=== PATIENT | male | born 1945 | race Caucasian/White ===

== ENCOUNTER 2020-02-14 11:05 | Emergency (ER) | payer MEDICARE ==
[~2020-02-14] VITALS: Ht 177.8 cm; Wt 90.0 kg
[2020-02-14 11:18] VITALS: BP_DIAS 87
[2020-02-14] MEDS ORDERED: NORMAL SALINE IV SCH (11:45)
[2020-02-14 11:52] LABS: BASO # 0.1 x10^3/uL (0.0-0.2); BASO % 1 % (0-3); EOS % 1 % (0-3); HEMATOCRIT 46.9 % (39.0-53.0); LYMPH # 1.1 x10^3/uL (1.0-4.8); LYMPH % 13 % (24-48); MEAN CORPUSCULAR HEMOGLOBIN 29 pg (25-35); MEAN CORPUSCULAR HGB CONC 32 g/dL (31-37); MEAN CORPUSCULAR VOLUME 91 fL (79-100); MONO # 0.9 x10^3/uL (0.0-1.1); MONO % 11 % (0-9); NEUT # 6.6 x10^3uL (1.8-7.7); NEUT % 75 % (31-73); PLATELET COUNT 249 x10^3/uL (140-400); RED BLOOD COUNT 5.15 x10^6/uL (4.30-5.70); RED CELL DISTRIBUTION WIDTH 15.9 % (11.5-14.5); WHITE BLOOD COUNT 8.8 x10^3/uL (4.0-11.0)
--- NOTE | 2020-02-14 11:53 | PHYS DOC ---
Past History Past Medical History: CHF, COPD, Diabetes, High Cholesterol, Hypertension Past Surgical History: No Surgical History Alcohol Use: None General Adult EDM: Chief Complaint: ALTERED MENTAL STATUS HPI: HPI: 74-year-old male presents via EMS for concern of altered mental status. The patient was at a local gas station getting gas with no pants on. The police were called and they called EMS. When asked the patient about this, the patient tells me that his pants were in the laundry and he needed to go to the store so he went without pants. He does not have any medical complaints. He has a basel ine cough due to his COPD. He states it is not worse. He has not had a fever chills. Home health comes to his house 3 days a week to wrap his lower extremities and take care of his medications. He does not know why. Review of Systems: Review of Systems: Constitutional: Denies fever or chills Eyes: Denies change in visual acuity HENT: Denies nasal congestion or sore throat Respiratory: Denies cough or shortness of breath Cardiovascular: Denies chest pain or edema GI: Denies abdominal pain, nausea, vomiting, bloody stools or diarrhea : Denies dysuria Musculoskeletal: Denies back pain or joint pain Integument: Denies rash Neurologic: Denies headache, focal weakness or sensory changes Endocrine: Denies polyuria or polydipsia Lymphatic: Denies swollen glands Psychiatric: Denies depression or anxiety Heart Score: Risk Factors: Risk Factors: DM, Current or recent (<one month) smoker, HTN, HLP, family history of CAD, obesity. Risk Scores: Score 0 - 3: 2.5% MACE over next 6 weeks - Discharge Home Score 4 - 6: 20.3% MACE over next 6 weeks - Admit for Clinical Observation Score 7 - 10: 72.7% MACE over next 6 weeks - Early Invasive Strategies Allergies: Allergies: Allergies Uncoded Allergies Type Severity Reaction Last Updated Verified BETA BLOCKERS Allergy Unknown 04/25/15 PCN Allergy Unknown 04/25/15 Physical Exam: PE: Constitutional: Not wearing pants. Well developed, well nourished, no acute distress, non-toxic appearance. [] HENT: Normocephalic, atraumatic, bilateral external ears normal, oropharynx moist, no oral exudates, nose normal. [] Eyes: PERRLA, EOMI, conjunctiva normal, no discharge. [] Neck: Normal range of motion, no tenderness, supple, no stridor. [] Cardiovascular:Heart rate regular rhythm, no murmur [] Lungs & Thorax: Bilateral breath sounds diminished but clear to auscultation [] Abdomen: Bowel sounds normal, soft, no tenderness, no masses, no pulsatile masses. [] Skin: Warm, dry, no erythema, no rash. [] Back: No tenderness, no CVA tenderness. [] Extremities: No tenderness, no cyanosis, no clubbing, ROM intact, no edema. [] Neurologic: Alert and oriented X 3, normal motor function, normal sensory function, no focal deficits noted. [] Psychologic: Affect normal, judgement normal, mood normal. [] Current Patient Data: Vital Signs: Vital Signs Date Time Temp Pulse Resp B/P (MAP) Pulse Ox O2 Delivery O2 Flow Rate FiO2 02/14/20 11:18 98.7 104 18 207/87 (127) 98 Nasal Cannula 3.0 EKG: EKG: Sinus rhythm, rate 68, rightward axis, no ST elevation or depression. [] Radiology/Procedures: Radiology/Procedures: [] Impressions: EXAM: Chest, single view. HISTORY: Altered mental status. COMPARISON: None. FINDINGS: A frontal view of the chest is obtained. There is central predominant right lung and lower lobe predominant left lung atelectasis or interstitial infiltrate. No consolidation, pleural effusion or pneumothorax is seen. There is a prominent cardiac silhouette, a component of which is due to portable technique. IMPRESSION: Central predominant right lung and lower lobe predominant left lung atelectasis or interstitial infiltrate. Electronically signed by: Sumi Brandt MD (02/14/2020 11:51 AM) [facility] DICTATED AND SIGNED BY: SUMI BRANDT MD DATE: 02/14/20 1159 CC: IBAN LARSON DO; DAKOTAH PULIDO ~ Course & Med Decision Making: Course & Med Decision Making Pertinent Labs and Imaging studies reviewed. (See chart for details) The patient's chest x-ray is abnormal. See official read for more details. These are likely chronic findings as his presentation is not concerning for pneumonia. There are no previous x-rays for comparison. Patient's labs are unremarkable except for slightly elevated troponin of 0.06. I discussed this with the advanced practice provider at the [facility] office and she felt that this is likely a demand ischemia due to his blood pressure and underlying CHF. His proBNP is elevated, but this also is likely baseline. We both feel that the patient can be safely discharged home. He has no chest pain or shortness of breath. He was not here for this complaint at all. He is stable for discharge at this time. [] Dragon Disclaimer: Dragon Disclaimer: This electronic medical record was generated, in whole or in part, using a voice recognition dictation system. Departure Departure: Impression: Primary Impression: Elevated troponin I level Additional Impression: Elevated brain natriuretic peptide (BNP) level Disposition: 01 HOME, SELF-CARE Condition: STABLE Referrals: DAKOTAH PULIDO (PCP) IBAN LARSON DO Feb 14, 2020 11:52
[2020-02-14 12:01] LABS: CALCIUM 8.9 mg/dL (8.5-10.1); GFR 72.8; POTASSIUM 4.4 mmol/L (3.5-5.1)
[2020-02-14 12:08] LABS: ALBUMIN/GLOBULIN RATIO 0.7 (1.0-1.7); TOTAL BILIRUBIN 0.6 mg/dL (0.2-1.0); TOTAL PROTEIN 7.2 g/dL (6.4-8.2)
[2020-02-14 13:15] VITALS: BP_SYST 154
[2020-02-14 13:22] LABS: BILIRUBIN,URINE SMALL (NEG); CLARITY,URINE CLEAR; COLOR,URINE YELLOW; GLUCOSE,URINE NEG (NEG); NITRITE,URINE NEG (NEG)
--- NOTE | 2020-02-14 14:46 | EKG ---
[address] [address] Test Date: 2020-02-14 Test Time: 11:22:10 Pat Name: SHO IVERSON Department: Room: Gender: M [employer] Supervisor: : 1945 Requested By: IBAN LARSON Order Number: [id number] Reading MD: Nikolai Burns Measurements Intervals [place] Rate: 68 P: -42 CA: 210 QRS: 146 QRSD: 110 T: -35 QT: 410 QTc: 441 Interpretive Statements BASELINE ARTIFACT PROBABLE SINUS RHYTHM QRS(T) CONTOUR ABNORMALITY CONSIDER ANTEROLATERAL INFARCT ABNORMAL ECG Electronically Signed On 02-15-2020 8:03:51 CDT by Nikolai Burns
== END 2020-02-14 13:07 | disposition home or self-care (01) ==
LOC: ER 11:05
DX: R79.89 Other specified abnormal findings of blood chemistry (principal); I11.0 Hypertensive heart disease with heart failure; I50.9 Heart failure, unspecified; J44.9 Chronic obstructive pulmonary disease, unspecified; E11.9 Type 2 diabetes mellitus without complications; E78.00 Pure hypercholesterolemia, unspecified; Z88.0 Allergy status to penicillin; Z88.8 Allergy status to other drugs, medicaments and biological substances
CPT/HCPCS: 36415; 71045; 80053; 81003; 83880; 84484; 85025; 93005; 99285

== ENCOUNTER 2020-11-08 17:08 | Emergency (ER) | payer MEDICARE ==
[~2020-11-08] VITALS: Ht 177.8 cm; Wt 75.0 kg
--- NOTE | 2020-11-08 17:19 | PHYS DOC ---
Past History Past Medical History: CHF, COPD, Diabetes, High Cholesterol, Hypertension (DAKOTAH TAYLOR DO) Past Surgical History: No Surgical History (DAKOTAH TAYLOR DO) Alcohol Use: None (DAKOTAH TAYLOR DO) General Adult EDM: Chief Complaint: ALTERED MENTAL STATUS HPI: HPI: 74 yo M PMH CHF, COPD (on no home oxygen), DM, HTN and HLD, presents to the ED brought in by EMS with concerns for weakness and change in mental status. EMS found pt down, confused/not oriented, 65% on room air and was placed on nonrebreather. Son-on law called 911, last known well around 2pm yesterday. Patient usually ambulates with a walker but has been unable to stand up at home. Plastic is on floor at home for voiding (family appears to have been cleaning it up). Patient does report a fall. Pt slow to respond but states his name, month, year and recent holiday. Pt shakes his head no when asked if he's in any pain. History/ROS does seem limited due to pts' mental status. Medical papers w/pt reviewed. Not on any AC. H/o vascular dementia. (DAKOTAH TAYLOR DO) Review of Systems: Review of Systems: ROS: limited 2/2 dementia vs medical condition (DAKOTAH TAYLOR DO) Allergies: Allergies: Allergies Uncoded Allergies Type Severity Reaction Last Updated Verified BETA BLOCKERS Allergy Unknown 04/25/15 PCN Allergy Unknown 04/25/15 (DAKOTAH TAYLOR DO) Physical Exam: PE: Constitutional: Unkept, disheveled appearance, dried stool over lower extremity dressings and shoes HENT: Normocephalic, atraumatic, no nuchal rigidity or meningismus Eyes: EOMI, conjunctiva normal, no discharge. Neck: Normal range of motion, supple, dry mucous membranes Cardiovascular: S1/2 present, tachycardic on arrival Lungs & Thorax: Speaking in full sentences, bilateral equal chest rise, mild tachypnea but no retractions, 88-92% on NRB, audible crackles w/sputum production-lungs sound wet Abdomen: soft, no tenderness, large/obese w/fluid wave Skin: Warm, dry, no erythema, no rash. [] Extremities: No tenderness, no cyanosis, +2/4 bl edema Neurologic: Alert, moves both arms, not moving his legs Psychologic: Affect normal, judgement normal, mood normal. [] : scrotal edema bl with candidal infection in groin, stool caked in scotrum/perineal region w/scrotal induration/erythema, no fluctuance (DAKOTAH TAYLOR DO) PE: Constitutional: Pt is oriented to person, place, and time. Pt appears disheveled with poor hygiene and feces on various areas of his body HEENT: Head: Normocephalic and atraumatic. TMs clear, no hemotympanum Conjunctivae and EOM are normal. Pupils are equal, round, and reactive to light. Oropharynx is clear and dry, poor dentition No hematomas or lacerations or abrasions to face or scalp OP clear, no blood, no malocclusion, dentition intact Nares clear, no nasal septal hematoma Midface stable Neck: C-spine midline nontender, no step-offs Cardiovascular: Normal rate, regular rhythm and normal heart sounds. Pulmonary/Chest: Patient tachypneic with no obvious respiratory distress or accessory muscle use, diminished breath sounds bilaterally with rhonchi present most significant in both bilateral lower lobes Abdominal: Soft and protuberant. Bowel sounds are normal. Pt exhibits distension and positive fluid wave. There is no tenderness. Musculoskeletal: No bony tenderness to extremities Chest wall stable Pelvis stable and non-tender No vertebral TTP and spine without stepoffs Neurological: Pt is alert and oriented to person, place, and time. Moving all extremities willfully, able to wiggle all fingers and toes Alert and oriented x 3 Sensation grossly intact Skin: Skin is warm and dry. Patient has mild skin breakdown to posterior sacrum area without any obvious u lcers Patient has bilateral lower extremity Unna boots in place with feces present on bilateral wrappings Patient's bilateral lower extremity toes have cap refill less than 3 seconds with signs of onychomycosis No abrasions, no lacerations Psychiatric: Behavior is appropriate for situation (REBECCA SHELLEY DO) EKG: EKG: [] (DAKOTAH TAYLOR DO) EKG: EKG ordered and interpreted by myself at 1835 hrs. as sinus rhythm at a rate of 60 bpm, grossly prolonged MS interval without any other interval abnormalities, no axis deviation, T wave inversions noted in leads I, II, III, aVF, V5 and V6, these findings are concerning for inferior and lateral wall ischemia. Leads V1 and V2 are concerning for early elevation without any signs of STEMI per criteria Prior EKG obtained on 02/14/2020 compared to EKG today, findings noted above are all new (REBECCA SHELLEY ) Radiology/Procedures: Radiology/Procedures: [] (DAKOTAH TAYLOR DO) Radiology/Procedures: EXAM: Head CT without contrast; cervical spine CT without contrast. HISTORY: Altered mental status. TECHNIQUE: Computed tomographic images of the head and cervical spine were obt ained without contrast. *One or more of the following individualized dose reduction techniques were utilized for this examination: 1. Automated exposure control. 2. Adjustment of the mA and/or kV according to patient size. 3. Use of iterative reconstruction technique. COMPARISON: None. FINDINGS: Head: There is no hemorrhage. There is no mass effect or midline shift. There is no hydrocephalus. There are subtle areas of hypodensity within the cerebral white matter. This is most commonly due to chronic small vessel disease in patients of this age. There is cerebral volume loss. There is a suspected small chronic infarct within the right thalamus. The orbits, paranasal sinuses mastoid air cells are unremarkable. There is no suspicious calvarial lesion. Cervical spine: There is cervical kyphosis. There is mild anterolisthesis of C3 on C4. There is noninstrumented fusion with bony bridging at C4 through C7. There is degenerative endplate remodeling with disc space narrowing at C7-T1 and T1-T2. There is multilevel facet arthropathy. No displaced fracture is seen. There is calcified atherosclerotic plaque within the carotid bifurcations. The lung apices are unremarkable. The combination of degenerative changes results in mild left foraminal stenosis at C2-C3, mild right and moderate left foraminal stenosis at C3-C4, mild right foraminal stenosis at C4-5, mild left foraminal stenosis at C5-C6, mild bilateral foraminal stenosis at C6-C7, and moderate right foraminal stenosis at C7-T1. There is bone demineralization. IMPRESSION: 1. No acute intracranial finding or evidence of acute cervical spinal trauma. 2. Bilateral cerebral white matter changes, likely due to chronic small vessel disease. 3. Multilevel degenerative change throughout the cervical spine and upper thoracic spine, described above. 4. Noninstrumented fusion at C4-C7. Electronically signed by: Sumi Brandt MD (11/08/2020 7:17 PM) [facility] ====== EXAM: Abdomen and pelvis CT without intravenous contrast. HISTORY: Distention. TECHNIQUE: Computed tomographic images of the abdomen and pelvis were obtained without contrast. Multiplanar reformatting was performed. *One or more of the following individualized dose reduction techniques were utilized for this examination: 1. Automated exposure control. 2. Adjustment of the mA and/or kV according to patient size. 3. Use of iterative reconstruction technique. COMPARISON: None. FINDINGS: Evaluation of the lower thorax demonstrates trace bilateral pleural effusions. There is bilateral lower lobe and lingular interstitial infiltrate with partial consolidation. There is cardiomegaly. There is calcified atherosclerotic plaque involving the coronary arteries. There is calcification of the aortic valve and mitral valve annulus. No hepatic lesion is seen. There is periportal edema. No pancreatic lesion is seen. The spleen is normal in size. There is bilateral adrenal gland thickening without a discrete nodule. There is a loculated cyst with thin internal septation involving the left kidney, measuring 5.3 cm. There is no hydronephrosis. There is a tiny nonobstructing left renal stone or vascular calcification. There is colonic diverticulosis. There is no convincing diverticulitis. There is rectal wall thickening possibly due to relative underdistention or the sequela of prior inflammation. There is no convincing colitis or proctitis. There is bladder wall thickening and a focus of gas within the bladder lumen likely due to recent catheterization. There is calcified plaque involving the aorta and main aortic branch vessels. There are prominent retroperitoneal lymph nodes. For reference purposes, there is a left retroperitoneal lymph node inferior to the left renal vein measuring 1.5 cm in long axis. There is diffuse stranding throughout the mesentery. There is a small amount of free fluid within the pelvis. There are prominent bilateral inguinal lymph nodes. There are large bilateral hydroceles. There are degenerative changes throughout the spine. There is scoliosis and multilevel listhesis. There is bone demineralization. There is no acute or suspicious osseous finding. There are findings consistent with prior ventral abdominal wall surgery. IMPRESSION: 1. Bilateral mid and lower lung pneumonia. 2. Periportal edema. This can be due to rapid bolus patient hydration. Correlate with liver enzyme laboratory values to exclude hepatitis. 3. Diffuse mesenteric stranding and small amount of free fluid within the pelvis. Correlate for volume overload. 4. Colonic diverticulosis. 5. Loculated left renal cyst cyst with thin septation measuring 5.3 cm. Sonographic follow-up can be performed to confirm benignity. 6. Rectal wall thickening likely due to relative underdistention or prior inflammation. There is no convincing colitis/proctitis. 7. Prominent retroperitoneal lymph nodes. These may be reactive in etiology. 7. Large bilateral hydroceles. Electronically signed by: Sumi Brandt MD (11/08/2020 7:28 PM) [facility] EXAM: Chest, single view. HISTORY: Altered mental status. COMPARISON: 02/14/2020 FINDINGS: A frontal view of the chest is obtained. There is suspected chronic diffuse interstitial prominence with superimposed basilar atelectasis. There is a stable enlarged cardiac silhouette. No pleural effusion or pneumothorax is seen. IMPRESSION: Stable diffuse interstitial prominence with bilateral lower lobe atelectasis. Electronically signed by: Sumi Brandt MD (11/08/2020 7:33 PM) [facility] (REBECCA SHELLEY DO) Heart Score: Risk Factors: Risk Factors: DM, Current or recent (<one month) smoker, HTN, HLP, family history of CAD, obesity. Risk Scores: Score 0 - 3: 2.5% MACE over next 6 weeks - Discharge Home Score 4 - 6: 20.3% MACE over next 6 weeks - Admit for Clinical Observation Score 7 - 10: 72.7% MACE over next 6 weeks - Early Invasive Strategies (DAKOTAH TAYLOR DO) HEART Score for Chest Pain: HEART Score for Chest Pain Response (Comments) Value History Moderately Suspicious [address] Depression 2 Age > 65 2 Risk Factors >3 Risk Factors or Hx CAD 2 Troponin >3 x Normal Limit 2 Total 9 Course & Med Decision Making: Course & Med Decision Making Pertinent Labs and Imaging studies reviewed. (See chart for details) Pt seen by myself ined and workup started., Pt hypoxic/tachycardic with diffuse anasarca-suspect nstemi w/sepsis/pna/chf. Does have elevated troponin and whc 12. Blood has withmild hypoxia and hypercapnea. CXR, ekg, imaging to r/o trauma/infection and ams labs all still pending. I suspect patient will likely need transfer for critical care assessment and interventional cardiology consultation. RT to place pt on bipap to reduce preload/afterload and hopefully, prevent RSI. Due to shift change patient was signed out to Dr. Shelley who is aware of pts' critical nature. ([facility]) Course & Med Decision Making I assumed care of patient after comprehensive signout obtained from off going physician. I reviewed ER work-up thus far I evaluated patient repeating certain aspects of history and physical exam. I agree with findings above Patient who is weak without chest pain/chest pressure presenting grossly edematous with concerning EKG findings versus prior EKG and elevated troponin I called cardiology at [facility], case discussed in addition to EKGs. Decision was made to administer 324 mg aspirin, start heparin drip, and transport for ongoing cardiac observation with plans for cardiac catheterization In addition, he is grossly fluid overloaded likely from condition above versus other underlying comorbidities, 80 mg IV Lasix administered Patient does have pneumonia which is clinically consistent with physical exam findings, IV antibiotics started for CAP coverage I called Dr. Moreno, hospitalist at [facility] and case was discussed, he agreed to plan of care so far, for transfer and admission under his care. He was updated on proposed plan of care and my discussion with cardiology Patient was updated on proposed plan of care to transfer to [facility] for higher acuity of care that will likely include cardiac catheterization, he was amenable. All questions and concerns addressed prior to transport via EMS Critical Care Time This patient required critical care. Due to the fact that the patient required a significant amount of one on one physician - patient contact time, ordering and review of studies, arranging urgent treatment with development of a management plan, evaluation of patients response to treatment with frequent reassessments, and discussions with other providers this patient required critical care time in excess of 30 minutes. Critical care time was indicated due to the inherent instability and/or potential for instability in this patient. The critical care time that is allocated to this patient is above and beyond any time spent on any other billable procedures performed on this patient. (REBECCA SHELLEY DO) Dragon Disclaimer: Sanna Disclaimer: This electronic medical record was generated, in whole or in part, using a voice recognition dictation system. (DAKOTAH TAYLOR DO) Departure Departure: Impression: Primary Impression: NSTEMI (non-ST elevated myocardial infarction) Additional Impressions: Bilateral pneumonia Acute respiratory failure with hypoxia and hypercapnia UTI (urinary tract infection) Generalized edema due to fluid overload Renal cyst, left Disposition: 02 DC/TRF OTHER SHORT TERM HOS ([facility]) Admitting Physician: Byron Moreno (REBECCA SHELLEY DO) Referrals: KELLIE CASTLE MD (PCP) DAKOTAH TAYLOR DO Nov 08, 2020 17:19 REBECCA SHELLEY DO Nov 08, 2020 18:42
[2020-11-08 17:36] LABS: BASO # 0.1 x10^3/uL (0.0-0.2); BASO % 1 % (0-3); EOS % 0 % (0-3); HEMATOCRIT 52.1 % (39.0-53.0); HEMOGLOBIN 16.5 g/dL (13.0-17.5); LYMPH # 1.3 x10^3/uL (1.0-4.8); LYMPH % 11 % (24-48); MEAN CORPUSCULAR HEMOGLOBIN 30 pg (25-35); MEAN CORPUSCULAR HGB CONC 32 g/dL (31-37); MEAN CORPUSCULAR VOLUME 94 fL (79-100); MONO # 1.6 x10^3/uL (0.0-1.1); MONO % 13 % (0-9); NEUT # 9.1 x10^3uL (1.8-7.7); NEUT % 76 % (31-73); PLATELET COUNT 170 x10^3/uL (140-400); RED BLOOD COUNT 5.56 x10^6/uL (4.30-5.70); RED CELL DISTRIBUTION WIDTH 15.4 % (11.5-14.5)
[2020-11-08 17:55] LABS: BGAS PH 7.38 (7.35-7.46)
[2020-11-08 17:56] LABS: ACETAMIN < 2.0 mcg/mL (10-30)
[2020-11-08 17:57] LABS: MAGNESIUM 2.4 mg/dL (1.8-2.4); SALIC < 2.8 mg/dL (2.8-20.0)
[2020-11-08] MEDS ORDERED: AZITHROMYCIN 500 MG in IV NORMAL SALINE 250ML 250 ML IV ONE (18:00)
[2020-11-08] MEDS ORDERED: VANCOMYCIN PER PHARMACY MC PRN (18:00)
[2020-11-08] MEDS ORDERED: VANCOMYCIN 2 GM in IV NORMAL SALINE 500ML 500 ML IV ONE (18:30)
[2020-11-08] MEDS ORDERED: CEFEPIME HCL 2 GM in IV NORMAL SALINE 100ML 100 ML IV ONE (18:30)
[2020-11-08 18:50] LABS: CREATININE 2.2 mg/dL (0.7-1.3); GFR 29.3
[2020-11-08 18:54] LABS: BARBITURATES NEG (NEG); BENZODIAZEPINES NEG (NEG); CANNABINOIDS NEG (NEG); COCAINE NEG (NEG); METHADONE NEG (NEG); OPIATES NEG (NEG); PHENCYCLIDINE NEG (NEG)
[2020-11-08] MEDS ORDERED: ASPIRIN CHEWABLE 81 MG TABLET. PO ONE (19:00)
[2020-11-08 19:01] LABS: AMPHETAMINE/METHAMPHETAMINE NEG (NEG)
[2020-11-08] MEDS ORDERED: HEPARIN 25,000UTS/250ML PREMIX 250 ML IV PRN (19:15)
[2020-11-08] MEDS ORDERED: HEPARIN for IV BOLUS 10,000 UNIT/10 ML VIAL. IV PRN (19:15)
[2020-11-08] MEDS ORDERED: HEPARIN for IV BOLUS 10,000 UNIT/10 ML VIAL. IV ONE (19:15)
--- NOTE | 2020-11-08 19:20 | RAD ---
EXAM: Head CT without contrast; cervical spine CT without contrast. HISTORY: Altered mental status. TECHNIQUE: Computed tomographic images of the head and cervical spine were obtained without contrast. *One or more of the following individualized dose reduction techniques were utilized for this examina tion: 1. Automated exposure control. 2. Adjustment of the mA and/or kV according to patient size. 3. Use of iterative reconstruction technique. COMPARISON: None. FINDINGS: Head: There is no hemorrhage. There is no mass effect or midline shift. There is no hydrocephalus. Th ere are subtle areas of hypodensity within the cerebral white matter. This is most commonly due to ch ronic small vessel disease in patients of this age. There is cerebral volume loss. There is a suspect ed small chronic infarct within the right thalamus. The orbits, paranasal sinuses mastoid air cells a re unremarkable. There is no suspicious calvarial lesion. Cervical spine: There is cervical kyphosis. There is mild anterolisthesis of C3 on C4. There is nonin strumented fusion with bony bridging at C4 through C7. There is degenerative endplate remodeling with disc space narrowing at C7-T1 and T1-T2. There is multilevel facet arthropathy. No displaced fractur e is seen. There is calcified atherosclerotic plaque within the carotid bifurcations. The lung apices are unremarkable. The combination of degenerative changes results in mild left foraminal stenosis at C2-C3, mild right and moderate left foraminal stenosis at C3-C4, mild right foraminal stenosis at C4-5, mild left rick inal stenosis at C5-C6, mild bilateral foraminal stenosis at C6-C7, and moderate right foraminal sten osis at C7-T1. There is bone demineralization. IMPRESSION: 1. No acute intracranial finding or evidence of acute cervical spinal trauma. 2. Bilateral cerebral white matter changes, likely due to chronic small vessel disease. 3. Multilevel degenerative change throughout the cervical spine and upper thoracic spine, described a maximilian. 4. Noninstrumented fusion at C4-C7. Electronically signed by: Sumi Brandt MD (11/08/2020 7:17 PM) [facility]
--- NOTE | 2020-11-08 19:30 | RAD ---
EXAM: Abdomen and pelvis CT without intravenous contrast. HISTORY: Distention. TECHNIQUE: Computed tomographic images of the abdomen and pelvis were obtained without contrast. Mult iplanar reformatting was performed. *One or more of the following individualized dose reduction techniques were utilized for this examina tion: 1. Automated exposure control. 2. Adjustment of the mA and/or kV according to patient size. 3. Use of iterative reconstruction technique. COMPARISON: None. FINDINGS: Evaluation of the lower thorax demonstrates trace bilateral pleural effusions. There is nilesh ateral lower lobe and lingular interstitial infiltrate with partial consolidation. There is cardiomeg akhil. There is calcified atherosclerotic plaque involving the coronary arteries. There is calcificatio n of the aortic valve and mitral valve annulus. No hepatic lesion is seen. There is periportal edema. No pancreatic lesion is seen. The spleen is nor mal in size. There is bilateral adrenal gland thickening without a discrete nodule. There is a locula jose cyst with thin internal septation involving the left kidney, measuring 5.3 cm. There is no hydron ephrosis. There is a tiny nonobstructing left renal stone or vascular calcification. There is colonic diverticulosis. There is no convincing diverticulitis. There is rectal wall thickeni ng possibly due to relative underdistention or the sequela of prior inflammation. There is no convinc ing colitis or proctitis. There is bladder wall thickening and a focus of gas within the bladder lume n likely due to recent catheterization. There is calcified plaque involving the aorta and main aortic branch vessels. There are prominent ret roperitoneal lymph nodes. For reference purposes, there is a left retroperitoneal lymph node inferior to the left renal vein measuring 1.5 cm in long axis. There is diffuse stranding throughout the mese ntery. There is a small amount of free fluid within the pelvis. There are prominent bilateral inguina l lymph nodes. There are large bilateral hydroceles. There are degenerative changes throughout the spine. There is scoliosis and multilevel listhesis. The re is bone demineralization. There is no acute or suspicious osseous finding. There are findings cons istent with prior ventral abdominal wall surgery. IMPRESSION: 1. Bilateral mid and lower lung pneumonia. 2. Periportal edema. This can be due to rapid bolus patient hydration. Correlate with liver enzyme la boratory values to exclude hepatitis. 3. Diffuse mesenteric stranding and small amount of free fluid within the pelvis. Correlate for volum e overload. 4. Colonic diverticulosis. 5. Loculated left renal cyst cyst with thin septation measuring 5.3 cm. Sonographic follow-up can be performed to confirm benignity. 6. Rectal wall thickening likely due to relative underdistention or prior inflammation. There is no c onvincing colitis/proctitis. 7. Prominent retroperitoneal lymph nodes. These may be reactive in etiology. 7. Large bilateral hydroceles. Electronically signed by: Sumi Brandt MD (11/08/2020 7:28 PM) [facility]
--- NOTE | 2020-11-08 19:35 | RAD ---
EXAM: Chest, single view. HISTORY: Altered mental status. COMPARISON: 02/14/2020 FINDINGS: A frontal view of the chest is obtained. There is suspected chronic diffuse interstitial pr ominence with superimposed basilar atelectasis. There is a stable enlarged cardiac silhouette. No ple ural effusion or pneumothorax is seen. IMPRESSION: Stable diffuse interstitial prominence with bilateral lower lobe atelectasis. Electronically signed by: Sumi Brandt MD (11/08/2020 7:33 PM) [facility]
[2020-11-08 19:37] LABS: ALBUMIN/GLOBULIN RATIO 1.1 (1.0-1.7); GFR 29.3; TOTAL BILIRUBIN 1.5 mg/dL (0.2-1.0)
[2020-11-08 19:38] LABS: CLARITY,URINE CLOUDY; COLOR,URINE AMBER
[2020-11-08 19:39] LABS: GLUCOSE,URINE NEG (NEG)
[2020-11-08 19:40] LABS: BACTERIA,URINE MANY /HPF (0-FEW); NITRITE,URINE POS (NEG); SQUAMOUS EPITHELIAL CELL,UR MANY /LPF
[2020-11-08 19:41] LABS: GRANULAR CASTS,URINE FEW /HPF; HYALINE CASTS, URINE FEW /HPF
[2020-11-08] MEDS ORDERED: FUROSEMIDE 40 MG/4 ML VIAL IVP ONE (19:45)
[2020-11-08 19:51] LABS: INFLUENZA A PATIENT NEGATIVE (NEGATIVE); INFLUENZA B PATIENT NEGATIVE (NEGATIVE)
--- NOTE | 2020-11-08 20:09 | EKG ---
[address] [address] Test Date: 2020-11-08 Test Time: 18:33:05 Pat Name: SHO IVERSON Department: Room: Gender: M Sales Marketing Director: : 1945 Requested By: DAKOTAH TAYLOR Order Number: [id number] Reading MD: Measurements Intervals [place] Rate: 60 P: LA: QRS: 81 QRSD: 112 T: 229 QT: 444 QTc: 448 Interpretive Statements JUNCTIONAL RHYTHM LVH WITH REPOLARIZATION ABNORMALITY ABNORMAL ECG RI6.02 No previous ECG available for comparison
[2020-11-08 20:10] LABS: ALBUMIN 3.5 g/dL (3.4-5.0); CALCIUM 9.3 mg/dL (8.5-10.1); CREATININE 2.2 mg/dL (0.7-1.3); TOTAL PROTEIN 6.7 g/dL (6.4-8.2)
[2020-11-08 21:40] VITALS: BP 147/71
[2020-11-08] MEDS ORDERED: CEFEPIME HCL 2 GM in IV NORMAL SALINE 100ML 100 ML IV SCH (22:00)
[2020-11-09 15:10] LABS: BILIRUBIN,URINE MOD (NEG)
--- NOTE | 2020-11-10 09:50 | NUR ---
IP: notified IP at [facility] of COVID result.
== END 2020-11-08 21:52 | disposition short-term general hospital (02) ==
LOC: ER 17:08
DX: J96.01 Acute respiratory failure with hypoxia (principal); I21.4 Non-ST elevation (NSTEMI) myocardial infarction; Z20.828 Contact with and (suspected) exposure to other viral communicable diseases; N39.0 Urinary tract infection, site not specified; R60.0 Localized edema; N28.1 Cyst of kidney, acquired; J18.9 Pneumonia, unspecified organism; I11.0 Hypertensive heart disease with heart failure; I50.9 Heart failure, unspecified; J44.9 Chronic obstructive pulmonary disease, unspecified; E11.9 Type 2 diabetes mellitus without complications; E78.00 Pure hypercholesterolemia, unspecified; Z88.8 Allergy status to other drugs, medicaments and biological substances
CPT/HCPCS: 36415; 51702; 70450; 71045; 72125; 74176; 80053; 80307; 80329; 81001; 82550; 82565; 82803; 83735; 83880; 84484; 85025; 85610; 85730; 86705; 86709; 86803; 87040; 87086; 87340; 87804; 93005; 94660; 96365; 96375; 96376; 99291; J1644; J1940; U0003; C9803; G0480